=== PATIENT | male | born 1980 | race Caucasian/White ===

== ENCOUNTER → 2021-10-04 11:55 | Outpatient (CLI) | payer BC, SELFPAY ==
--- NOTE | ~2021-10-04 | XR_ITS ---
EXAMINATION:XR_CERV2-3V_CR DATE: 10/04/2021 12:19 INDICATION: Neck pain TECHNIQUE: AP, lateral, lateral swimmers and odontoid views of the cervical spine are provided. COMPARISON: None FINDINGS: Alignment is normal. The odontoid is intact. No fracture is identified. The vertebral body heights are maintained. There is mild loss of intervertebral disc space height at C5-6. There is mild facet and uncovertebral joint osteoarthritis at C5-6. Prevertebral soft tissues are normal. IMPRESSION: 1. Mild cervical spondylosis at C5-6 without acute findings. Reviewed, dictated and finalized at location B.
--- NOTE | ~2021-10-04 | XR_ITS ---
EXAMINATION: XR shoulder LT min 2V INDICATION: Left shoulder pain TECHNIQUE: Four views of the left shoulder are submitted. COMPARISON: None FINDINGS: Normal alignment. No acute fracture. There is a healed fracture of the distal clavicle. The re is mild osteoarthritis of the glenohumeral joint and moderate osteoarthritis of the acromioclavicu lar joint. Soft tissues are unremarkable. IMPRESSION: 1. No acute osseous abnormality. Reviewed, dictated and finalized at location B.
== END ==
PROVIDERS: PCP Nurse Practitioner Family; Visit Provider Nurse Practitioner Family
DX: M25.512 Pain in left shoulder (principal); M47.892 Other spondylosis, cervical region
CPT/HCPCS: 72040; 73030

== ENCOUNTER → 2022-06-13 14:44 | Outpatient (CLI) | payer BC, SELFPAY ==
--- NOTE | ~2022-06-13 | MR_ITS ---
MRI of the cervical spine Clinical History: Pain Technique: Axial T2-weighted and gradient images, and sagittal T1-weighted, T2-weighted, and STIR rukhsana ges were acquired. Findings: There is no fracture or subluxation of the cervical spine. Vertebral bodies maintain normal height and alignment. No suspicious bone marrow signal abnormality seen. At C2-C3, there is no disc bulge or herniation. No spinal canal stenosis, cord compression, or neural foraminal narrowing. At C3-C4, there is minimal central disc osteophyte complex. There is no spinal canal stenosis or cord compression. Bilateral neural foramina are preserved, despite mild facet arthropathy. At C4-C5, there is no significant disc bulge or herniation. No spinal canal stenosis, cord compressio n, or neural foraminal narrowing. At C5-C6, there is large posterior disc protrusion, resulting in moderate to severe canal stenosis an d moderate to severe cord compression. There is bilateral neural foraminal narrowing. At C6-C7, there is no disc bulge or herniation. No spinal canal stenosis, cord compression, or neural foraminal narrowing. There is focal spinal cord edema at the C5-C6 level. Paravertebral soft tissues are unremarkable. Impression: Moderate to severe cord compression and canal stenosis at C5-C6, related to large posterior disc prot rusion. Associated focal cord edema at this level. Additional minimal degenerative changes in the cervical spine, as above. Reviewed, dictated and finalized at [facility]. Impression: Moderate to severe cord compression and canal stenosis at C5-C6, related to lar ge posterior disc protrusion. Associated focal cord edema at this level. Additional minimal degenerative changes in the cervical spine, as above.
--- NOTE | ~2022-06-13 | MR_ITS ---
MRI of the left shoulder Technique: Axial proton-density fat-sat images, coronal proton density fat-sat and T2 fat-sat images, and sagittal T1-weighted and T2 fat-sat images were acquired. Clinical History: Pain Findings: There is moderate to advanced AC joint degenerative change. Small subacromial spur present. There is mild bony productive change at the distal clavicle. Supraspinatus and infraspinatus tendons are intact, without partial or full-thickness tear. There is moderate to severe tendinosis distally, especially of the infraspinatus tendon. Subscapularis tendon is intact, with mild tendinosis. Tendon of the long head of the biceps is intact. No labral tear identified. Inferior glenohumeral ligament is intact. There is minimal glenohumeral joint effusion. No fluid dist ention of the subacromial/subdeltoid bursa. No degenerative change of the glenohumeral joint. No musc le atrophy or edema. Impression: Rotator cuff tendinosis, as detailed above. No partial or full-thickness tear. Moderate to advanced AC joint degenerative change. Reviewed, dictated and finalized at [facility]. Impression: Rotator cuff tendinosis, as detailed above. No partial or full-thickness tear. Moderate to advanced AC joint degenerative change.
== END ==
PROVIDERS: PCP Nurse Practitioner Family; Visit Provider Nurse Practitioner Family
DX: M48.02 Spinal stenosis, cervical region (principal); M50.30 Other cervical disc degeneration, unspecified cervical region; M19.012 Primary osteoarthritis, left shoulder
CPT/HCPCS: 72141; 73221

== ENCOUNTER → 2022-09-16 12:24 | Outpatient (CLI) | payer BC, SELFPAY ==
--- NOTE | ~2022-09-16 | XR_ITS ---
EXAM: XR cervical spine 4-5V DATE: 09/16/2022 13:12 HISTORY: FLEX/EXT . COMPARISON: 10/04/2021. FINDINGS: Craniocervical association and atlantoaxial joint are aligned. No prevertebral soft tissue swelling. A trace 1 mm anterolisthesis emerges in flexion at C3-4. 2 mm anterolisthesis at C2-3 whic h reduces in extension. Vertebral body heights are maintained. Moderate disc space narrowing at C5-6. Very mild multilevel facet sclerosis and hypertrophy. IMPRESSION: Mild grade 1 dynamic listheses at C2-3 and C3-4. Moderate degenerative disc disease at C5-6. Reviewed, dictated and finalized at location K.
--- NOTE | ~2022-09-16 | CT_ITS ---
EXAMINATION: CT cervical spine wo con DATE: 09/16/2022 13:12 INDICATION: Other cervical disc displacement, unspecified. TECHNIQUE: Computed tomography (CT) of the cervical spine was performed without intravenous contrast. Automated exposure control and iterative reconstruction technique were employed. The dose-length pro duct was 362.50 mGy-cm. COMPARISON: Cervical spine MRI 06/13/2022 FINDINGS: There is 4 degrees levocurvature of cervical spine. Vertebral body heights are normal. Ther e is mildly decreased disc height at C5-C6. Osseous central spinal canal is developmentally small in cervical spine. The following disc levels are specifically discussed: C2-C3: There is no uncovertebral joint osteoarthritis. There is no facet joint osteoarthritis. There is no neural foraminal stenosis. There is no central canal stenosis. C3-C4: There is mild right uncovertebral joint osteoarthritis. There is mild bilateral facet joint os teoarthritis. There is mild right neural foraminal stenosis. There is mild central canal stenosis. C4-C5: There is no uncovertebral joint osteoarthritis. There is mild bilateral facet joint osteoarthr itis. There is no neural foraminal stenosis. There is mild central canal stenosis. C5-C6: There is moderate bilateral uncovertebral joint osteoarthritis. There is mild bilateral facet joint osteoarthritis. There is mild right and moderate left neural foraminal stenosis. There is sever e central canal stenosis. C6-C7: There is no uncovertebral joint osteoarthritis. There is no facet joint osteoarthritis. There is no neural foraminal stenosis. There is no central canal stenosis. C7-T1: There is no uncovertebral joint osteoarthritis. There is moderate bilateral facet joint osteoa rthritis. There is mild bilateral neural foraminal stenosis. There is no central canal stenosis. IMPRESSION: 1. Severe spondylosis at C5-C6 and mild spondylosis at other levels. Reviewed, dictated and finalized at location A.
== END ==
PROVIDERS: PCP Nurse Practitioner Family; Visit Provider Neurological Surgery
DX: M47.812 Spondylosis without myelopathy or radiculopathy, cervical region (principal); M50.322 Other cervical disc degeneration at C5-C6 level; M43.12 Spondylolisthesis, cervical region
CPT/HCPCS: 72050; 72125

== ENCOUNTER 2023-01-17 12:56 | Outpatient (CLI) | payer BC, SELFPAY ==
[2023-01-17 13:45] LABS: Hemoglobin 14.5 g/dL (14.0-18.0); Mean Corpuscular Hemoglobin 30.3 pg (26-34); Mean Corpuscular Volume 91.9 fl (80-100); Mean Platelet Volume 9.8 fl (7.4-10.4); Platelet Count Result 229 k/mm3 (150-375); Red Blood Count 4.79 M/mm3 (4.6-6.20); Red Cell Distribution Width 13.2 % (11.5-14.5); White Blood Count 7.4 K/mm3 (4.5-10.0)
[2023-01-17 13:46] LABS: Appearance Urine Clear (Clear); Bilirubin Urine Negative (Negative); Blood Urine Negative (Negative); Color Urine Yellow (Yellow); Glucose Urine UA Negative (Negative); Ketones Urine Negative (Negative); Leukocyte Esterase Ur Negative LEU/UL (Negative); Nitrate Urine Negative (Negative); Protein Urine Negative (Negative)
[2023-01-17 13:48] LABS: Add Urine Microscopic? NO
[2023-01-17 13:54] LABS: INR 0.9; Prothrombin Time 12.7 Seconds (11.1-14.7)
[2023-01-17 13:55] LABS: Partial Thromboplastin Time 26.8 SECONDS (22.3-36.8)
[2023-01-17 13:56] LABS: Anion Gap 9 mmol/L (8-16); Blood Urea Nitrogen 9 mg/dL (9-20); Calcium 8.8 mg/dL (8.4-10.2); Carbon Dioxide 25 mmol/L (22-30); Chloride 104 mmol/L (98-107); Estimated Glomerular Filt Rate > 60; Glucose 160 mg/dL (65-110); Potassium 4.3 mmol/L (3.4-5.0); Sodium 138 mmol/L (137-145)
== END 2023-01-17 12:57 | disposition home or self-care (01) ==
LOC: ANHSURGERY 13:03
PROVIDERS: PCP Nurse Practitioner Family; Visit Provider Neurological Surgery
DX: M50.20 Other cervical disc displacement, unspecified cervical region (principal)
CPT/HCPCS: 36415; 80048; 81003; 85027; 85610; 85730

== ENCOUNTER 2023-01-21 01:12 | Day surgery (SDC) | payer BC, SELFPAY ==
[2023-01-16 14:03] VITALS: BMI 39.8
--- NOTE | 2023-01-16 14:49 | PC.NURSE ---
Report to the Outpatient Waiting Room, entrance under the green pavilion located off [facility], at time __0600 on date _01/21/23 . Planned Procedure Time: _0730 . Time changes happen often and if your time is changed the preop area will call you the afternoon before. - You and your visitor will be asked to self-screen and do not enter if you have any COVID symptoms. - A mask is optional within the hospital at this time. Patients may have clear liquids (water, carbonated beverages, clear teas, apple juice) until 3 hours prior to surgery with a maximum of 20 ounces. - No food from midnight until time of surgery Take the following medications with a SIP of water the morning of surgery: __No Home meds DO NOT STOP ANY OF YOUR OTHER PRESCRIPTION MEDICATIONS PRIOR TO SURGERY ?EXCEPT THE FOLLOWING Medications to discontinue per physician ___N/A Date to take last dose N/A Please no make-up, nail icelandic, hairspray, perfume, deodorant, or body powder the day of surgery. No jewelry (including any body piercings) or valuables the day of surgery, leave them at home. Please take a shower or bath the night before, or the morning of, surgery with an antibacterial soap. Wear comfortable, loose fitting clothing. Children are encouraged to wear pajamas. - Jewelry must be removed prior to entering the operating room. Rings and piercings that are not removed may be cut off. - The hospital will not accept responsibility for valuables. - Please leave all valuables, including medications, at home the day of surgery. If you are going home after surgery, a licensed commercial truck driver must drive you home. - NO public transportation without another adult if you receive anesthesia. - We recommend that an adult stay with you for 24 hours following discharge. - We also recommend that you do not drive, make important decision, drink alcoholic beverages, or take any drugs that were not prescribed by your health care provider for at least 24 hours after your discharge time. Follow any additional instructions given to you from your surgeon. If you or anyone in your household have experienced Covid symptoms in the past week, please notify your surgeon or the nurse liaison at the phone number below for possible testing. Telephone instructions given to __Td Elizalde and asked if any additional questions and then verbalized understanding. Patient advised to call surgeon office or pre surgery nurse liaison [phone] if any additional questions.
[2023-01-21] VITALS (9 sets, daily range): BP systolic 114–149; BP diastolic 62–97; PULSE 84–107; RESP 14–18; TEMP 36.1–36.3; O2SAT 94–98
--- NOTE | ~2023-01-21 | XR_ITS ---
EXAMINATION: XR fluoroscopy no charge DATE: 01/21/2023 8:00 ELECTRICAL TRYOUT PERSON INDICATION: CERVICAL ARTHROPLASTY . TECHNIQUE: 2 fluoroscopic images of the cervical spine were obtained during cervical fusion performed by the surgeon. I was not present in the operating room. Fluoroscopy exposure time was 23 seconds. A ir Kerma 10.211 mGy. COMPARISON: 09/16/2022 FINDINGS: Interbody fusion at C5-6. IMPRESSION: Fluoroscopic documentation of cervical fusion. Please refer to the operative note for complete proced ural details . Reviewed, dictated and finalized at location K. TRICAL TRYOUT PERSON IMPRESSION: Fluoroscopic documentation of cervical fusion. Please refer to the operative no te for complete procedural details .
[2023-01-21] MEDS: LACTATED RINGERS 1,000 ML 30 ML IV CONT ×2 (06:48→10:25)
--- NOTE | 2023-01-21 07:14 | P.PNAN_ITS ---
Anes - Initial Pre Proc Eval Procedure: Operation Date: 01/21/23 07:30 Proposed Procedures p Cervical Disc Arthroplasty C5-6 - Heron Melendrez MD Date/Time: 01/21/23 07:14 Surgeon: Heron Melendrez MD Pre Op Diagnosis: Cervical Disc Herniation Patient Data Age: 43 Gender: M Height: 1.88 m Weight: 141.3 kg Last Vital Signs Temp 36.1 C L 01/21/23 06:20 Pulse 84 01/21/23 06:20 Resp 16 01/21/23 06:20 BP 127/86 01/21/23 06:20 Pulse Ox 98 01/21/23 06:20 O2 Del Method Room Air 01/21/23 06:20 Allergies Allergy/AdvReac Type Severity Reaction Status Date / Time erythromycin base Allergy Severe TOLD RASH Verified 01/21/23 07:02 CHILD Home Medications Medication Instructions Recorded Confirmed Type No Home Medications 11/25/22 01/21/23 History Patient hx anesthesia problems: post op nausea/vomiting Family hx anesthesia problems: post op nausea/vomiting Results Review: All pre-operative results and documents have been reviewed as part of the pre- operative evaluation. [facility] Past Medical History Medical History Cervical disc herniation Family History Family History Father Diabetes mellitus Mother Diabetes mellitus Social History Social History Smoking status: Never smoker Alcohol intake: never Substance use: never Substance use type: does not use Lack of Transportation: No Lack of Food: Never True Current Housing: I Have Housing Concerned About Future Housing: No Difficulty Paying Gas/Electric Bills: No Difficulty Paying for Meds: No Currently Unemployed: No Education: Bachelor's Degree Difficulty w/ Childcare or Family Care: No Living arrangements: alone Occupation/Education: occupation Spiritual care concerns: No Agree to blood products: Yes Anes - Eval Final PreProcedure Day of Procedure 01/21/23 07:14 Patient weight: morbidly obese Heart: regular rate and rhythm Lungs: clear to auscultation Airway: Mallampati scale class 1 Neurological: alert and oriented Last oral intake: >/= 8 hours ASA classification: III Emergent: no Anesthetic plan: proceed Anesthesia type and monitoring: general ETT and standard monitoring Results Review: All pre-operative results and documents have been reviewed as part of the pre- operative evaluation. Informed Consent: The patient's anesthetic plan and its attendant risks and benefits were discussed with the patient/family/POA. Questions were solicited and answers provided to the satisfaction of the patient/family/POA.
--- NOTE | 2023-01-21 07:40 | P.HP_ITS ---
H&P: HPI History of Present Illness Date/Time: 01/21/23 07:40 Chief Complaint: Td is a 43-year-old gentleman with neck and arm pain related to pathology at C5-6 presents for decompression and then cervical disc arthroplasty at that level. He has not changed appreciably since we last saw him. He does not have bowel or bladder difficulty or other constitutional problems. He is not having specific muscle group weakness or dermatomal numbness. Review of Systems Review of Systems: Patient denies shortness of breath, cough, fever, chills, nausea, vomiting, we ight loss, weight gain, chest pain, dysuria. He has neck and arm pain has above. His review of systems is otherwise negative on 12 systems except as noted elsewhere. [facility] Past Medical History Medical History Cervical disc herniation Family History Family History Father Diabetes mellitus Mother Diabetes mellitus Social History Social History Smoking status: Never smoker Alcohol intake: never Substance use: never Substance use type: does not use Lack of Transportation: No Lack of Food: Never True Current Housing: I Have Housing Concerned About Future Housing: No Difficulty Paying Gas/Electric Bills: No Difficulty Paying for Meds: No Currently Unemployed: No Education: Bachelor's Degree Difficulty w/ Childcare or Family Care: No Living arrangements: alone Occupation/Education: occupation Spiritual care concerns: No Agree to blood products: Yes Meds Home Medications and Allergies Home Medications Medication Instructions Recorded Confirmed Type No Home Medications 11/25/22 01/21/23 History Allergies Allergy/AdvReac Type Severity Reaction Status Date / Time erythromycin base Allergy Severe TOLD RASH Verified 01/21/23 07:02 CHILD Vital Signs Vital Signs - 24 hr 01/21/23 06:20 Temperature 97.0 F L Pulse Rate 84 Respiratory Rate 16 Blood Pressure 127/86 Pulse Oximetry 98 Oxygen Delivery Room Air Exam Narrative: Strength is 5/5 in all muscle groups in the bilateral upper extremities. Sensation is intact to light touch throughout the upper extremities. Breathing is nonlabored Regular rate and rhythm Assessment and Plan Assessment and plan (1) Cervical disc herniation: Code(s): M50.20 - Other cervical disc displacement, unspecified cervical region Status: Acute Plan Td is a 43-year-old gentleman with neck and arm pain related to neural compressive pathology at C5-6 who presents for cervical disc arthroplasty after adequate decompression. I described to him again that operation, its risks, potential benefits, the operative and postop course in detail and answered all his questions personally. He indicates understanding and elects to proceed with that operation.
--- NOTE | 2023-01-21 07:42 | WPDHPUPDATE1 ---
History and Physical Update Update Date/Time: 01/21/23 07:42 History and Physical has been reviewed, including an updated exam of the patient. There are NO changes in the patient's condition. Risks, benefits, and alternatives have been discussed and questions answered. Patient agrees to proceed with procedure.
[2023-01-21] MEDS: ceFAZolin 3 GM/D5W 100 ML 100 ML IVPB (07:47)
[2023-01-21] MEDS: LIDO 1%/EPINEPHRINE 1:100,000 50 ML VIAL 10 ML INFILTRATE (08:30)
--- NOTE | 2023-01-21 10:13 | W.PM.PROC2 ---
Procedure Note - Detailed Date of Procedure 01/21/23 Pre-op Diagnosis Cervical Disc Herniation Post-op Diagnosis Same Procedure Performed C5-6 cervical disc arthroplasty Surgeon Heron Melendrez MD Anesthesia General Description of Procedure Patient was brought to the operating room in the supine position, was sedated, intubated placed under general anesthesia in routine fashion. The area of operation on the right side of the neck was examined, marked for incision, prepped and draped in routine sterile fashion. Incision was marked from the midline over the medial aspect of the sternocleidomastoid muscle and curvilinear transverse fashion 2 fingerbreadths above the sternal notch. This area was injected with 0.5% lidocaine with [id number] epinephrine. Intravenous antibiotics given prior to incision. Incision was made with a 10 blade scalpel down to the platysma muscle. The skin was undermined the platysma muscle was divided longitudinally its fibers using Metzenbaum scissors. Plane was then dissected medial to the sternocleidomastoid muscle down to the anterior aspect of the spine using the finger Metzenbaum scissors. A verifying x-rays obtained to verify the level of operation. At the C5-6 level longus colli muscle was dissected free of the anterior aspect of spine using Bovie cautery. Shadow Line retractor system was placed. Portillo pins were placed in a parallel fashion under fluoroscopy into C5 and C6. Distraction was placed over the disc space using the proprietary distractor. The disc space was entered using a 15 blade scalpel cutting along the margin of the bone above and below. Curved curette and pituitary rongeur were used to remove as much cartilaginous endplate disc material as possible down to bleeding cortical flat surfaces on the opposing bones and until the annulus and ligament were encountered. Under microscopy a nerve hook was used to interrupt the annulus and ligament. A 2. Kerrison punch was then used to remove annulus, ligament and posterior osteophyte and to complete a bony foraminotomy bilaterally. This was done until a nerve hook could be placed out each foramen to confirm lack of compression. There was significant posterior osteophyte, herniated disc and overgrown ligament that needed to be removed. The disc space was then sized and a he medium long 6 mm M6 disc arthroplasty was chosen. First the trial was placed into the disc space and under fluoroscopy in the AP and lateral views noted to be in good factor in position and be a good size. This was removed and then the cutter was placed into the wound and used to create keel cuts in the endplates above and below. Her this was done 1st with distraction and then compression. In like fashion, 1st with distraction and then with compression the device was placed down the keel cuts under fluoroscopy until confirmed to be in correct position in both the AP and lateral views. This was confirmed after all the instrumentation including the Troy pins and distractor were removed. The wound was copiously irrigated with bacitracin irrigation all bleeding stopped with bipolar Bovie cautery and Gelfoam thrombin powder. The wound was then closed in layered fashion with 3-0 Vicryl interrupted sutures in the platysma muscle and in the dermis. The skin was closed with running 4-0 Monocryl subcuticular stitch and dressed with Dermabond. The patient was allowed to wake up in the operating room and was taken to the recovery room in stable condition. There were no immediate complications of this operation. All counts were reported correct in the case. Blood loss was 25 cc. The patient was neurologically at his baseline postoperatively. Estimated Blood Loss 25 IV Fluids 1,000 Complications None Condition Stable Disposition PACU [facility] Billing Surgery - Charge Forward: Surgery Billing
[2023-01-21] MEDS: ONDANSETRON INJ 4 MG/2 ML VIAL IV PUSH (11:11)
[2023-01-21] MEDS: SCOPOLAMINE 1.5 MG PATCH TRANSDERM (12:00)
== END 2023-01-21 12:50 | disposition home or self-care (01) ==
PROVIDERS: PCP Nurse Practitioner Family; Visit Provider Neurological Surgery
PROC: 0RQ10ZZ Repair Cervical Vertebral Joint, Open Approach (ICD-10-PCS; CPT 22856; principal; 2023-01-21 07:30)
DX: M50.222 Other cervical disc displacement at C5-C6 level (principal); E66.01 Morbid (severe) obesity due to excess calories; Z68.41 Body mass index [BMI] 40.0-44.9, adult
CPT/HCPCS: 22856; 99199; A9270; J0330; J0690; J1100; J1170; J2250; J2371; J2405; J2704; J3010; J7120

== ENCOUNTER 2023-03-04 13:20 | Outpatient (CLI) | payer OTHER, SELFPAY ==
--- NOTE | ~2023-03-04 | XR_ITS ---
EXAMINATION: XR_CERV2-3V_CR DATE: 03/04/2023 13:51 INDICATION: Other cervical disc displacement, unspecified. TECHNIQUE: 4 views of cervical spine were obtained. COMPARISON: Cervical spine radiographs 09/16/22, CT 09/16/2022 FINDINGS: There is 9 degrees levocurvature of cervical spine. Vertebral body heights are normal. Inte rvertebral disc heights are normal. There are changes of disc replacement at C5-C6. The facet joints are unremarkable. There is mild central canal stenosis at C5-C6. No prevertebral soft tissue swelling . IMPRESSION: 1. Disc replacement at C5-C6. Reviewed, dictated and finalized at location E. [employer]
== END 2023-03-04 13:21 ==
LOC: MICIMG 13:22
PROVIDERS: PCP Neurological Surgery; Visit Provider Neurological Surgery
DX: M50.20 Other cervical disc displacement, unspecified cervical region (principal)
CPT/HCPCS: 72040